=== PATIENT | male | born 2000 | race Caucasian/White ===

== ENCOUNTER 2025-01-16 14:04 | Emergency (ER) | payer OTHER ==
[~2025-01-16] VITALS: Ht 180.3 cm; Wt 82.0 kg
[2025-01-16 14:12] VITALS: O2SAT 99
[2025-01-16] MEDS: LORAZEPAM 2MG/ML UD SYRINGE IM SCH (15:00)
[2025-01-16] MEDS: DIPHENHYDRAMINE 50MG/ML VIAL IM ONE (15:00)
[2025-01-16 15:32] LABS: *AMPHETAMINES SCREEN URINE NEGATIVE (NEGATIVE); *BARBITURATES SCREEN URINE NEGATIVE (NEGATIVE); *BENZODIAZEPINES SCREEN URINE NEGATIVE (NEGATIVE); *COCAINE SCREEN URINE NEGATIVE (NEGATIVE); CANNABINOID URINE SCREEN NEGATIVE (NEGATIVE); ECSTASY MDMA SCREEN URINE NEGATIVE (NEGATIVE); METHADONE URINE SCREEN NEGATIVE (NEGATIVE); OPIATES URINE SCREEN NEGATIVE (NEGATIVE); PHENCYCLIDINE URINE SCREEN NEGATIVE (NEGATIVE)
[2025-01-16 15:50] LABS: BASOPHILS % 0.6 % (0.0-2.0); EOSINOPHILS % 1.1 % (0.0-5.0); HEMATOCRIT. 37.2 % (42.0-52.0); HEMOGLOBIN. 12.3 g/dL (14.0-18.0); LYMPHOCYTES % 15.6 % (20.0-50.0); MEAN PLATELET VOLUME 9.3 fl (7.4-10.4); MONOCYTES % 8.2 % (2.0-8.0); NEUTROPHILS % 74.5 % (40.0-76.0); PLATELET 226 x1000/uL (130-400); RED BLOOD CELL COUNT 4.42 mill/uL (4.7-6.1); RED CELL DISTRIBUTION WIDTH 13.1 % (11.6-14.6)
[2025-01-16 16:08] LABS: CREATININE 1.0 mg/dL (0.6-1.3); UREA NITROGEN BLOOD 8 mg/dL (9-23)
[2025-01-16] MEDS: OLANZAPINE 10 MG/VIAL IM SCH (16:25)
[2025-01-17] MEDS: OLANZAPINE 5MG TABLET PO SCH (09:36)
[2025-01-17] MEDS: GABAPENTIN 300MG CAPSULE PO SCH (09:36)
[2025-01-17] MEDS: LITHIUM CARBONATE 150 MG CAPSULE PO SCH (09:36)
[2025-01-17] MEDS: LORAZEPAM 1MG TABLET PO ONE (10:14)
[2025-01-17] MEDS: NICOTINE 21MG PATCH TD ONE (11:40)
[2025-01-17 13:50] VITALS: BP 91/64; PULSE 65; RESP 16; TEMP 36.8; O2SAT 100
== END 2025-01-17 14:00 ==
LOC: ER 14:04
DX: R45.851 Suicidal ideations (principal); R45.1 Restlessness and agitation; I49.8 Other specified cardiac arrhythmias; Z79.899 Other long term (current) drug therapy; Z20.822 Contact with and (suspected) exposure to COVID-19
CPT/HCPCS: 80048; 80307; 85025; 36415; 93005; 96372; 99291; 87426; 70450; G0480; J3490; J1200; J2060; Z7610; 80305; 80320; 80329